=== PATIENT | female | born 1960 ===

== ENCOUNTER 2018-06-09 07:21 | Outpatient (CLI) | payer OTHER | END 2018-06-09 07:48 | disposition home or self-care (01) | LOC: LAB 07:21 | DX: C18.2 Malignant neoplasm of ascending colon (principal); R59.0 Localized enlarged lymph nodes; K92.1 Melena ==

== ENCOUNTER 2018-06-09 09:45 | Inpatient (IN) | payer OTHER ==
[~2018-06-09] VITALS: Ht 162.6 cm; Wt 59.9 kg
[2018-06-20] MEDS ORDERED: PROTONIX20 MG PO ×2 (09:37)
[2018-06-20] MEDS ORDERED: CARAFATE1 GM/10 ML PO ×2 (09:37)
[2018-06-20] MEDS ORDERED: PERCOCET 5-3251 EACH PO ×2 (09:37)
[2018-06-20] MEDS ORDERED: INTESTINEX680 M1 PO ×2 (09:37)
== END 2018-06-20 17:05 | disposition home or self-care (01) | DRG 331 ==
LOC: EDUNIT# 12:30 → SURH 06-13 07:15 → O/R 06-16 07:41 → SURH 06-16 10:30
PROVIDERS: ADMIT Surgery
PROC: 07TB4ZZ Resection of Mesenteric Lymphatic, Percutaneous Endoscopic Approach (ICD-10-PCS; 2018-06-16)
PROC: 0DTH4ZZ Resection of Cecum, Percutaneous Endoscopic Approach (ICD-10-PCS; principal; 2018-06-16 10:30)
DX: C18.0 Malignant neoplasm of cecum (principal); R59.0 Localized enlarged lymph nodes

== ENCOUNTER 2018-06-13 07:06 | Outpatient (CLI) | payer OTHER ==
[2018-06-20] MEDS ORDERED: INTESTINEX680 M1 PO (09:37)
[2018-06-20] MEDS ORDERED: PROTONIX20 MG PO (09:37)
[2018-06-20] MEDS ORDERED: CARAFATE1 GM/10 ML PO (09:37)
[2018-06-20] MEDS ORDERED: PERCOCET 5-3251 EACH PO (09:37)
== END 2018-06-13 07:12 | disposition home or self-care (01) ==
LOC: TOM 07:06
DX: C18.2 Malignant neoplasm of ascending colon (principal); R59.0 Localized enlarged lymph nodes; K92.1 Melena
CPT/HCPCS: 71260; 74178; Q9965

== ENCOUNTER 2018-06-15 09:33 | Day surgery (SDC) | payer OTHER | END 2018-06-15 15:30 | disposition home or self-care (01) | LOC: AMB-ENDOS 09:33 | DX: C18.2 Malignant neoplasm of ascending colon (principal) ==

== ENCOUNTER 2018-07-11 05:31 | Day surgery (SDC) | payer OTHER ==
[~2018-07-11 05:31] MED LIST: CARAFATE1 GM/10 ML PO; INTESTINEX680 M1 PO; PERCOCET 5-3251 EACH PO; PROTONIX20 MG PO
[2018-07-11] MEDS ORDERED: PERCOCET 5-3251 EACH PO (09:58)
== END 2018-07-11 12:10 | disposition home or self-care (01) ==
LOC: CIR.AMB 05:31
DX: C18.2 Malignant neoplasm of ascending colon (principal)
CPT/HCPCS: 36561; C1751

== ENCOUNTER 2020-12-12 06:28 | Day surgery (SDC) | payer OTHER ==
[~2020-12-12 06:28] MED LIST changes: +GLUCOSA PO; +MULTIPLE VITAM1 EACH PO; +VITAMIN D PO
[2020-12-12] MEDS ORDERED: ULTRACET PO (07:49)
== END 2020-12-12 11:55 | disposition home or self-care (01) ==
LOC: CIR.AMB 06:28
PROVIDERS: ATTEND Surgery
DX: C18.2 Malignant neoplasm of ascending colon (principal); Z20.822 Contact with and (suspected) exposure to COVID-19